=== PATIENT | female | born 1955 | race Caucasian/White ===

== ENCOUNTER → 2020-07-04 11:45 | Outpatient (CLI) | payer OTHER, SELFPAY ==
--- NOTE | 2020-07-04 11:52 | RAD_ITS ---
PROCEDURE: LUMBAR MYELOGRAM DATE OF EXAMINATION: 07/04/2020. INDICATION: Female, 64 years old. Low back pain. PHYSICIAN: Feliciano Tobar M.D. CONSENT: The patient''s history and physical findings were reviewed. The lumbar myelogram procedure was discussed with the patient prior to signing a consent. SEDATION: Local anesthesia with 3 mL of 1% lidocaine was used. FLUOROSCOPY TIME (if supplied): (1:12) minutes/seconds Injection Information: 15 cc of ISOVUE-M 200. Number of images obtained: 4 TECHNIQUE: Digital fluoroscopy was used to identify a safe approach for the lumbar myelogram. The back was prepped and draped in usual fashion. Local anesthesia was utilized. Under fluoroscopic guidance a 22-gauge spinal needle was inserted into the spinal canal at the L4-5 level. 15 mL of Isovue 200 M was injected into the spinal canal. There is good opacification of the spinal fluid. The nerve root sheaths are asymmetrically identified. 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 RAD/Lumbar Myelogram IMPRESSION: Multiple anterior extradural defects as described. A CT scan will follow. The patient tolerated the procedure well. Electronically Signed: Feliciano Tobar MD at 13:21 EST , Service support ,
[2020-07-04 12:08] VITALS: BP 167/70; PULSE 74; RESP 16; TEMP 36.6; O2SAT 98; BMI 28.3
--- NOTE | 2020-07-04 12:49 | CT_ITS ---
STUDY: CT LUMBAR SPINE WITH INTRATHECAL CONTRAST (LUMBAR CT MYELOGRAM) REASON FOR EXAM: Female, 64 years old. LUMBAR MYELOGRAM RADIATION DOSAGE (If Supplied By Facility): CTDIvol = ( 14.59 ) mGy, DLP = ( 387.47 ) mGycm TECHNIQUE: Transaxial images were obtained from the L1 vertebra through the S1 vertebrae, following intrathecal administration of 15 ml of ISOVUE-M 200 contrast material, performed by Dr. Ekateirna WALTON. Please refer to this physicians technical notes for procedural details. Coronal and sagittal reconstructions were obtained. Individualized dose optimization techniques were used for this CT. COMPARISON: Comparison is made with prior mammogram done earlier in the day. FINDINGS: Normal lumbar lordosis. There is no substantial scoliosis. Normal vertebrae of the lumbar spine. There is dependent layering of contrast material in the distal thecal sac. The conus medullaris terminates in a normal position at the L1-L2. There is no demonstrated cauda equina nerve root abnormality or intraspinal mass. L1-2: Moderate degree of disc space narrowing and disc degeneration. Mild degree of diffuse posterior disc bulge causing mild deformity of the anterior thecal sac. Minimal stenosis. L2-3: Moderate degree of disc space narrowing. Anterior spondylosis. Moderate degree of diffuse posterior disc bulge as well as minimal retrolisthesis of L2 on L3 causing mild degree of spinal stenosis slightly worse on the right side. L3-4: Marked degree of disc space narrowing and disc degeneration. Spondylosis. Moderate degree of bilateral neural foraminal stenosis secondary to diffuse posterior disc bulge as well as facet joint proliferation. L4-5: Marked degree of disc space narrowing and disc degeneration. There is evidence of a left lateral disc herniation causing deformity of the thecal sac and compromise of the exiting nerve root. L5-S1: Normal endplates. Normal disc height and morphology. Normal bilateral facet joints. Normal central canal and bilateral lateral recesses. Normal bilateral intervertebral neural foramina. Normal visualized sacroiliac joints. Normal visualized paraspinous soft tissue structures. CT/Spine Lumbar WITH Contrast IMPRESSION: Multilevel disc space narrowing and disc bulging as described. Left lateral disc herniation causing deformity of the thecal sac and compromise of the exiting nerve root at the L4-L5 level. Electronically Signed: Feliciano Tobar MD at 14:51 EST , Service support ,
[2020-07-04 14:06] VITALS: BP 166/76; PULSE 81; RESP 14; O2SAT 97
== END ==
PROVIDERS: PCP Family Medicine; Referring Provider Specialist; Visit Provider Specialist
DX: M51.36 Other intervertebral disc degeneration, lumbar region (principal)
CPT/HCPCS: 62304; 72132; Q9967

== ENCOUNTER 2020-08-23 16:44 | Outpatient (RCR) | payer OTHER, SELFPAY ==
[2020-07-04 12:08] VITALS: BMI 28.3
[2020-08-23] MEDS: COVID-19 VACC, MRNA(PFIZER)/PF 30 MCG/0.3 ML SYRINGE IM (18:05)
[2020-09-13] MEDS: COVID-19 VACC, MRNA(PFIZER)/PF 30 MCG/0.3 ML SYRINGE IM (17:51)
== END 2020-11-22 23:59 ==
LOC: IMMUN 16:44
PROVIDERS: PCP Family Medicine; Visit Provider Family Medicine
DX: Z23 Encounter for immunization (principal)
CPT/HCPCS: 0001A; 0002A; 91300

== ENCOUNTER 2021-02-23 16:20 | Emergency (ER) | payer OTHER, SELFPAY ==
[2021-02-23 16:21] VITALS: BP 128/96; PULSE 84; RESP 16; TEMP 36.1; O2SAT 97; BMI 24.5
--- NOTE | 2021-02-23 17:02 | US_ITS ---
We are attempting to reach an attending provider to discuss findings. An addendum with communication details will be sent when the communication is complete. The INDICATION: LT POSTERIOR CALF PAIN EXAMINATION: Ultrasound US Venous Duplex LE Unilat / Limited TECHNIQUE: Lee scale, pulse wave, and color flow Doppler imaging was performed of the lower extremity venous system. The left greater saphenous, common femoral, femoral, and popliteal veins were interrogated. COMPARISON: None. FINDINGS: Common femoral and femoral vein show normal grayscale appearance and compressibility. Noncompressible thrombus seen in the popliteus vein with absent color flow. Partial noncompressibility proximal posterior tibial vein and peroneal vein. There is also noncompressible thrombus visible in the more distal leg labeled by the manager acute as LT GASTROCS. Contralateral right common femoral vein shows normal grayscale appearance, color flow and venous waveform. US/Venous Duplex Imag/Limited/Uni IMPRESSION: Deep venous thrombosis popliteus vein with at least partial involvement posterior tibial and peroneal veins. Electronically Signed: Cabrera Garcia DO at 18:15 EDT Tel , Service support ,
--- NOTE | 2021-02-23 17:53 | ED.VIS.LOWEX ---
HPI History of Present Illness Chief Complaint: Lower Extremity Injury Narrative Narrative: Patient presenting for evaluation secondary to concern for DVT. Patient does have past history of DVT when she was in her 20s secondary to a Patient denies any provoking factors associated with this. hysterectomy. She is not currently anticoagulated. Patient states over the course about the last 4 days she has had pain in her left calf going up behind her knee. There has been no chest pain or shortness of breath. No thigh pain. Pain is mild worse with palpation and movement. No injuries. No lifting twisting pushing pulling or increased activity that would explain this. Review of systems otherwise negative. PFSH PFSH Home Medications escitalopram oxalate 20 mg PO DAILY 02/23/21 [History Last Taken Unknown] losartan 75 mg PO DAILY 02/23/21 [History Last Taken Unknown] metformin 1,000 mg PO DAILY 02/23/21 [History Last Taken Unknown] rivaroxaban [Xarelto DVT-PE Treat 30d Start] See Rx Instructions .ROUTE .COMPLEX #51 tab 02/23/21 [Rx Last Taken Unknown] zolpidem 5 mg PO QHS 02/23/21 [History Last Taken Unknown] Allergy/AdvReac Type Severity Reaction Status Date / Time No Known Allergies Allergy Verified 02/23/21 16:21 Social History Smoking Status: Never smoker ROS ROS ED Constitutional Constitutional ED: Denies chills or fever(s) ENT ENT ED: Denies rhinorrhea Cardiovascular Cardiovascular: Denies chest pain Respiratory/Chest Respiratory/Chest: Denies cough or dyspnea Gastrointestinal Gastrointestinal: Denies abdominal pain, diarrhea, nausea or vomiting Genitourinary Genitourinary ED: Denies dysuria or hematuria Musculoskeletal Musculoskeletal: Reports other Details: Left leg pain Integumentary Denies rash Neurologic Neurologic: Denies paresthesias or weakness Psychiatric Psychiatric: Denies depression Endocrine Endocrinology: Denies fatigue Allergic/Immunologic Allergic/Immunologic ED: Denies urticaria EXAM Physical Exam Const Vital Signs: 02/23/21 16:21 Temperature 96.9 F L Temperature Source Temporal Pulse Rate 84 Respiratory Rate 16 Blood Pressure 128/96 H Blood Pressure Mean 106 Pulse Ox 97 Oxygen Delivery Method Room Air Positive well nourished and well developed General Appearance ED: well developed and NAD HEENT Reports moist mucous membranes Negative for trauma or tenderness Eyes EOMs intact bilaterally Neck no lymphadenopathy, supple and no JVD Chest Wall inspection of chest normal Resp normal respiratory effort and clear to auscultation bilaterally Cardio regular rate, regular rhythm, no murmurs and peripheral pulses 2+ throughout GI normal to inspection, nondistended, normoactive bowel sounds, non-tender and no masses Palpation: soft Back/Spine normal to inspection Extremity Extremity Narrative: Left leg shows calf tenderness as well as tenderness in the popliteal fossa. There is no palpable cord. Normal distal pulses and sensation. Compartments are soft. Thigh is supple and nontender. General Extremety ED: Negative for tenderness Neuro oriented x3 and no sensory deficits noted Sensorium / Orientation: alert Motor Exam: strength 5/5 throughout Psych mental status grossly normal Skin no rashes or lesions noted MDM MDM MDM Narrative Medical decision making narrative: Patient presented secondary to leg pain. Duplex ultrasound does demonstrate evidence of a DVT going up through the popliteal trunk. Patient will be placed on anticoagulation. Patient will follow up with primary care. Patient is not complaining of chest pain shortness of breath is not hypoxic or tachycardic do not believe that work-up for PE is indicated. Discharge Plan Triage Chief Complaint: Lower Extremity Injury ED Provider: Cabrera Sullivan Dx/Rx/DC Orders Clinical Impression: DVT (deep venous thrombosis) Instructions: ED Deep Vein Thrombosis (DVT) Prescriptions: New Xarelto DVT-PE Treat 30d Start 15 mg (42)- 20 mg (9) tablets,dose pack See Rx Instructions .ROUTE .COMPLEX Qty: 51 RF: 0 No Action losartan 50 mg tablet 75 mg PO DAILY RF: 0 metformin 1,000 mg tablet 1,000 mg PO DAILY RF: 0 zolpidem 5 mg tablet 5 mg PO QHS RF: 0 escitalopram oxalate 20 mg tablet 20 mg PO DAILY RF: 0 Primary Care Provider: Lenard Sauceda Referrals: Lenard Sauceda MD [Primary Care Provider] - 3-5 Days Disposition Disposition: Home, Self Care
== END 2021-02-23 18:05 | disposition home or self-care (01) ==
PROVIDERS: Emergency Provider Emergency Medicine; PCP Family Medicine
DX: I82.439 Acute embolism and thrombosis of unspecified popliteal vein (principal); Z79.01 Long term (current) use of anticoagulants; Z79.84 Long term (current) use of oral hypoglycemic drugs; Z79.899 Other long term (current) drug therapy; Z86.718 Personal history of other venous thrombosis and embolism
CPT/HCPCS: 93971; 99282

== ENCOUNTER 2023-06-05 09:10 | Emergency (ER) | payer MEDICARE, SELFPAY ==
[2023-06-05 09:12] VITALS: BP 155/72; PULSE 81; RESP 14; TEMP 35.7; O2SAT 98; BMI 30.1
--- NOTE | 2023-06-05 09:45 | VDLE_ITS ---
Reason For Study: Right leg pain RIGHT LEFT GSV is normal. CFV is compressible, spontaneous, phasic, CFV is compressible, spontaneous, phasic, competent, and demonstrates normal competent and demonstrates normal augmentation. augmentation. FV prox is compressible with venous flow noted. Acute deep vein thrombosis is noted in the right FV mid-distal, PopV, T/P Trunk, GastrocV, SoleusV, PTV and PeroV. It is NONCOMPRESSIBLE and dilated. Procedure This is a venous duplex using B-mode, color flow and spectral Doppler. Exam performed portable in ED. A preliminary report was called and/or faxed to Dr. phillips. VL/Venous Duplex US, Unilateral Interpretation Summary Acute deep vein thrombosis is noted in the right femoral vein, popliteal vein, tibioperoneal trunk vein, gastrocnemius vein, soleus vein, posterior tibial vein, peroneal vein. Ordering Physician: Reji Phillips Referring Physician: Lenard Sauceda Performed By: Tori Torre RVT
--- NOTE | 2023-06-05 09:45 | ED.VIS.LOWEX ---
HPI History of Present Illness Chief Complaint: Lower Extremity Injury Informant: patient and spouse/S.O. Narrative Narrative: 67-year-old female presenting to the emergency room with the chief complaint of right leg swelling and pain. Patient states that she is had prior DVTs but does not recall what she was previously on. No history of cancer or recent surgery or travel. Patient states this has been there for approximately 2 days. She notes discomfort in the right thigh and swelling from the calf inferiorly. Patient has had prior peripheral artery stenting. The patient notes a couple weeks ago she had some back injections and she has not been as active as she normally is. [facility] Medical History Diabetes DVT (deep venous thrombosis) Hypertension Spinal cord stimulator status Home Medications escitalopram oxalate 20 mg tablet 20 mg PO DAILY 02/23/21 [History Last Taken Unknown] losartan 50 mg tablet 75 mg PO DAILY 02/23/21 [History Last Taken Unknown] metformin 1,000 mg tablet 1,000 mg PO DAILY 02/23/21 [History Last Taken Unknown] zolpidem 5 mg tablet 5 mg PO QHS 02/23/21 [History Last Taken Unknown] hydrocodone-acetaminophen 5-325mg 5mg-325mg 1 tab PO Q6H PRN PRN Pain 3 days #12 TABLETS 06/05/23 [Rx Last Taken Unknown] rivaroxaban 15 mg (42)-20 mg (9) tablets in a starter pack (Xarelto DVT-PE Treatment 30-Day Starter) See Rx Instructions PO .COMPLEX #51 tabs 06/05/23 [Rx Last Taken Unknown] Allergy/AdvReac Type Severity Reaction Status Date / Time No Known Allergies Allergy Verified 06/05/23 09:11 Surgical History H/O endarterectomy History of shoulder surgery Social History Smoking Status: Never smoker ROS ROS ED Constitutional Constitutional ED: Denies chills or weight loss Eyes Eyes: Denies change in vision or diplopia ENT ENT ED: Denies ear pain, rhinorrhea or sore throat Cardiovascular Cardiovascular: Denies chest pain, orthopnea, palpitations or racing heartbeat Respiratory/Chest Respiratory/Chest: Denies cough, dyspnea or orthopnea Gastrointestinal Gastrointestinal: Denies abdominal pain, diarrhea, nausea or vomiting Genitourinary Genitourinary ED: Denies dysuria, hematuria or urinary frequency Musculoskeletal Musculoskeletal: Reports other Details: Right leg swelling and pain ; Denies arthralgias or myalgias Integumentary Denies abscess or rash Neurologic Neurologic: Denies headache(s) or weakness Psychiatric Psychiatric: Denies anxiety, depression, suicidal ideation or suicidal thoughts Endocrine Endocrinology: Denies polydipsia, polyphagia or polyuria Allergic/Immunologic Allergic/Immunologic ED: Denies mouth swelling, tongue swelling or urticaria EXAM Physical Exam Const Vital Signs: 06/05/23 09:12 Temperature 96.3 F L Temperature Source Temporal Pulse Rate 81 Respiratory Rate 14 Blood Pressure 155/72 H Blood Pressure Mean 99 Pulse Ox 98 Oxygen Delivery Method Room Air Positive well nourished and well developed General Appearance ED: well developed HEENT Reports normocephalic, head/scalp atraumatic and moist mucous membranes Eyes PERRL and EOMs intact bilaterally Neck no lymphadenopathy, supple and no JVD Resp normal respiratory effort and clear to auscultation bilaterally Cardio regular rate, regular rhythm and no murmurs GI normal to inspection, nondistended, normoactive bowel sounds and non-tender Palpation: soft Back/Spine no CVA tenderness and normal ROM Extremity normal to inspection Extremity Narrative: The right calf is swollen and tender. Swelling extends down to just inferior to the malleoli. No skin erythema. There is some increased warmth. Good dorsalis pedis pulse General Extremety ED: Negative for edema General Extremity: Negative for edema Neuro oriented x3 and CN's II-XII intact bilaterally Sensorium / Orientation: alert Motor Exam: strength 5/5 throughout Psych mental status grossly normal Mood & Affect: Negative for depressed or tearful Skin no rashes or lesions noted and no wounds MDM MDM MDM Narrative Medical decision making narrative: Duplex ultrasound was obtained which demonstrates an acute DVT starting in the mid femoral vein. She has previously been on Xarelto and she states that it was well-tolerated. We will go ahead and begin this again. I will attempt to reach her primary care doctor to inform them. I did speak with her pain management doctor because the patient is requesting some pain medication. I did review her [facility] report and speak with Dr. Borrero. I think it is reasonable to write her a small amount of [place] as she takes a half a tablet twice a day chronically Discharge Plan Triage Chief Complaint: Lower Extremity Injury ED Provider: Reji Phillips Dx/Rx/DC Orders Clinical Impression: Acute deep vein thrombosis (DVT) of right lower extremity Instructions: DVT Tx Prescriptions: New Xarelto DVT-PE Treat 30d Start 15 mg (42)- 20 mg (9) tablets,dose pack See Rx Instructions .ROUTE .COMPLEX Qty: 51 0RF Rx Instructions: take one-15 mg tablet twice daily for 21 days, then one-20 mg tablet once daily; must take with meal/food hydrocodone-acetaminophen [hydrocodone-acetaminophen] 5-325 mg tablet 1 tab PO Q6H PRN PRN (Reason: Pain) 3 Days Qty: 12 0RF Discontinued Xarelto DVT-PE Treat 30d Start 15 mg (42)- 20 mg (9) tablets,dose pack See Rx Instructions .ROUTE .COMPLEX Qty: 51 0RF Rx Instructions: Take one-15 mg tablet twice daily for 21 days, then one-20 mg tablet once daily; must take with meal/food No Action losartan 50 mg tablet 75 mg PO DAILY Patient Comments: once a day metformin 1,000 mg tablet 1,000 mg PO DAILY Patient Comments: once a day zolpidem 5 mg tablet 5 mg PO QHS Patient Comments: TAKE 1 TABLET BY MOUTH AT BEDTIME escitalopram oxalate 20 mg tablet 20 mg PO DAILY Primary Care Provider: Lenard Sauceda Referrals: Lenard Sauceda MD [Primary Care Provider] - As soon as possible Disposition Disposition: Home, Self Care
== END 2023-06-05 11:37 | disposition home or self-care (01) ==
PROVIDERS: Emergency Provider Emergency Medicine; PCP Family Medicine; Visit Provider Emergency Medicine
DX: I82.419 Acute embolism and thrombosis of unspecified femoral vein (principal); E11.9 Type 2 diabetes mellitus without complications; I10 Essential (primary) hypertension; Z86.718 Personal history of other venous thrombosis and embolism; Z79.899 Other long term (current) drug therapy
CPT/HCPCS: 93971; 99282

== ENCOUNTER → 2023-10-08 | Outpatient (CLI) | payer MEDICARE, SELFPAY ==
[2023-10-08 11:09] LABS: Amphetamine Urine VISTA NEGATIVE (<1000 ng/mL); Barbiturate Urine VISTA NEGATIVE (< 200 ng/mL); Benzodiazepine Urine VISTA NEGATIVE (< 200 ng/mL); Cocaine Urine VISTA NEGATIVE (< 300 ng/mL); Ecstacy Urine VISTA NEGATIVE (< 500 ng/mL); Methadone Urine VISTA NEGATIVE (< 300 ng/mL); PCP Urine VISTA NEGATIVE (< 25 ng/mL); THC Urine VISTA NEGATIVE (< 50 ng/mL); Vista UDS pH Range 5
== END | disposition home or self-care (01) ==
PROVIDERS: PCP Family Medicine; Referring Provider Anesthesiology Pain Medicine; Visit Provider Anesthesiology Pain Medicine
DX: F11.20 Opioid dependence, uncomplicated (principal)
CPT/HCPCS: 80307

== ENCOUNTER 2024-01-18 20:07 | Emergency (ER) | payer MEDICARE, SELFPAY ==
[2024-01-18 20:08] VITALS: BP 139/64; PULSE 94; RESP 17; TEMP 36.7; O2SAT 94
[2024-01-18 20:59] LABS: Basophil# 0.06 X10^3/uL; Basophil% 0.4 % (0-1); Eosinophils% 1.4 % (0-5); Hematocrit 34.3 % (37-47); Hemoglobin 10.8 g/dL (12.0-15.0); Lymphocyte % 20.2 % (19-41); Mean Corp Hgb Conc 31.5 g/dL (32-36); Mean Corpuscular Hgb 26.6 pg (27.0-32.0); Mean Corpuscular Volume 84.5 fL (81-99); Mean Platelet Vol. 9.7 fl (6.2-12.0); Monocyte# 1.18 X10^3/uL; Monocyte% 8.2 % (0-10); NRBC Flagged by Analyzer 0 % (0-5); Neutrophil # 9.96 X10^3/uL (2.7-7.7); Neutrophil % 69.2 % (47-70); Platelet Count 357 K/mm3 (150-450); RBC Distribution Width CV 15.7 % (11.6-14.6); RBC Distribution Width SD 48.3 fl (35.1-43.9); Red Blood Count 4.06 M/mm3 (4.2-5.4); White Blood Count 14.4 K/mm3 (4.4-11.0)
[2024-01-18 21:08] VITALS: BP 119/59; PULSE 94; RESP 12; O2SAT 96
--- NOTE | 2024-01-18 21:10 | RAD_ITS ---
EXAM: XR CHEST, 2 VIEWS CLINICAL INDICATION: chest pain TECHNIQUE: Frontal and lateral views of the chest. COMPARISON: No relevant prior studies available. FINDINGS: LUNGS AND PLEURAL SPACES: Unremarkable. No consolidation or edema. No pneumothorax. No effusion. HEART: Unremarkable. Cardiac silhouette not enlarged. MEDIASTINUM: Central airways and mediastinal contour are unremarkable. BONES/JOINTS: Degenerative changes of the spine. No acute fracture. SOFT TISSUES: Unremarkable. VASCULATURE: Atherosclerotic calcifications of the nonenlarged thoracic aortic arch. Atherosclerotic calcifications involving the left axillary artery. RAD/Chest PA and Lateral IMPRESSION: No acute disease. Electronically Signed: Ritesh Strong MD at 21:33 EDT ,
--- NOTE | 2024-01-18 21:14 | EKG12_ITS ---
Test Reason : CP Blood Pressure : / mmHG Vent. Rate : 096 BPM Atrial Rate : 096 BPM P-R Int : 148 ms QRS Dur : 070 ms QT Int : 348 ms P-R-T Axes : 066 -41 050 degrees QTc Int : 439 ms Normal sinus rhythm Left axis deviation Low voltage QRS Abnormal ECG Confirmed by Cabrera Caro ([id number]), school photograph editor TEDDY PEREIRA ([id number]) on 01/21/2024 1:42:10 PM Referred By: Confirmed By:Cabrera Caro
[2024-01-18 21:16] LABS: Anion Gap 6 (5-15); BUN 14 mg/dL (7-18); Calcium,Total 8.9 mg/dL (8.5-10.1); Chloride 109 mmol/L (98-107); Creatinine, Serum 1.08 mg/dL (0.55-1.02); EST Glomerular Filtration Rate 53 mL/min (>60); Est Glom Filt Rate - Afr Amer 65 mL/min (>60); Glucose 296 mg/dL (74-106); Magnesium 1.7 mg/dL (1.6-2.6); Potassium 3.7 mmol/L (3.5-5.1); Sodium Level 140 mmol/L (136-145); Troponin-I HS 15 pg/mL (3.0-54.0)
[2024-01-18 21:59] LABS: D-Dimer Quantitative (DVT/PE) 1.05 FEU/ug/m (0.27-0.49)
[2024-01-18 22:00] VITALS: BP 147/63; PULSE 93; RESP 21; O2SAT 90
--- NOTE | 2024-01-18 22:03 | CT_ITS ---
ACR Level 3 findings have been noted. An addendum which confirms receipt of the report will follow. EXAM: CT ANGIOGRAPHY CHEST WITHOUT AND WITH INTRAVENOUS CONTRAST CLINICAL INDICATION: chest pain with elevated d-dimer TECHNIQUE: Helically acquired angiography images were obtained of the chest without and with intravenous contrast. CTDIvol = ( 13.25 ) mGy, DLP = ( 492.48 ) mGycm This CT exam was performed using one or more of the following dose reduction techniques: automated exposure control, adjustment of the mA and/or kV according to patient size, and/or use of iterative reconstruction technique. MIP reconstructed images were created and reviewed. CONTRAST: IV 100mL Isovue-370 COMPARISON: No relevant prior studies available. FINDINGS: PULMONARY ARTERIES: Unremarkable. Normal in caliber. No evidence of pulmonary embolism. AORTA: Unremarkable. Normal in caliber. No evidence of dissection. GREAT VESSELS OF AORTIC ARCH: Unremarkable. Normal in caliber. No evidence of dissection. LUNGS AND PLEURAL SPACES: Mild to moderate centrilobular emphysema which is worse at the upper lungs. 1.6 x 1 cm subpleural nodule at the medial aspect of the right lower lobe. No pneumothorax. No consolidation. HEART: [id number] multivessel calcific coronary atherosclerosis. Heart size is normal. Small volume pericardial fluid. MEDIASTINUM: Unremarkable. No mediastinal or hilar adenopathy. Esophagus is unremarkable. No hiatal hernia. THYROID: Unremarkable. No thyroid lesions. BONES/JOINTS: Unremarkable. No suspicious lytic or blastic abnormality. CT/CTA Chest W/WO Contrast IMPRESSION: 1. No PE. 2. Small pericardial effusion. 3. 1.6 x 1 cm subpleural nodule at the medial aspect of the right lower lobe. This is concerning for a neoplastic process. Recommend PET/CT for further investigation. AID[employer] was utilized to assist in identifying pertinent positive findings. Electronically Signed: Ritesh Strong MD at 0:32 EDT ,
[2024-01-18 23:00] VITALS: BP 135/64; PULSE 96; RESP 18; O2SAT 94
[2024-01-18 23:37] LABS: Troponin-I HS 19 pg/mL (3.0-54.0)
[2024-01-18 23:59] VITALS: PULSE 96; RESP 15; O2SAT 94
[2024-01-19] VITALS: PULSE 94; RESP 14; O2SAT 93
--- NOTE | 2024-01-19 00:36 | EDS_ITS ---
HPI History of Present Illness Chief Complaint: Chest Pain Informant: patient and spouse/S.O. Narrative Narrative: Patient is a 68-year-old female with past medical history of COPD previous DVT currently on Eliquis as well as hypertension and bxk-korirda-ijqxopbbn diabetes. Patient states she developed some sharp left and midsternal chest pain this evening while sitting at rest. She denies any nausea vomiting or diaphoresis associated with this. She states there was slight increase in shortness of breath. She reports her has history of cardiovascular disease and therefore she took 2 of his nitroglycerin pills. She states after doing so she did have mild improvement of symptoms. She is concerned that her chest discomfort could be due to cardiovascular disease and secondary to this comes in for evaluation [facility] Medical History Diabetes DVT (deep venous thrombosis) Hypertension Spinal cord stimulator status Home Medications ?Medication ?Instructions ?Recorded ?Last Taken ?Type albuterol sulfate 90 mcg/actuation 2 puff inhalation Q4 PRN 10/24/23 Unknown History aerosol inhaler amlodipine 5 mg tablet 5 mg PO QDAY 10/24/23 Unknown History buprenorphine 5 mcg/hour weekly 1 patch topical QWEEK 10/24/23 Unknown History transdermal patch fluticasone fur. 200 mcg-umeclid 1 ea inhalation QDAY 10/24/23 Unknown History 62.5 mcg-vilant 25 mcg inhalat.powder (Trelegy Ellipta) glimepiride 4 mg tablet 4 mg PO BID 10/24/23 Unknown History ekfxzsltyhko-likhakaa-zwszdh tablet 1 tab PO DAILY 10/24/23 Unknown History omeprazole 20 mg capsule,delayed 20 mg PO BID 10/24/23 Unknown History release rivaroxaban 20 mg tablet (Xarelto) 20 mg PO QDAY 10/24/23 Unknown History trazodone 50 mg tablet 50 mg PO QHS 10/24/23 Unknown History Allergy/AdvReac Type Severity Reaction Status Date / Time No Known Allergies Allergy Verified 10/24/23 09:28 Surgical History H/O endarterectomy History of shoulder surgery Social History (Updated 10/24/23 @ 09:31 by Yamileth Khan) household members: spouse Smoking Status: Current every day smoker tobacco type: cigarettes alcohol intake: never ROS ROS ED Constitutional Constitutional ED: Denies chills or fever(s) Eyes Eyes: Denies blurry vision or change in vision ENT ENT ED: Denies sore throat Cardiovascular Cardiovascular: Reports chest pain; Denies palpitations or racing heartbeat Respiratory/Chest Respiratory/Chest: Reports dyspnea; Denies cough Gastrointestinal Gastrointestinal: Denies abdominal pain, diarrhea, nausea or vomiting Genitourinary Genitourinary ED: Denies dysuria Musculoskeletal Musculoskeletal: Denies myalgias Integumentary Denies rash Neurologic Neurologic: Denies headache(s) Hematologic/Lymphatic Hematologic/Lymphatic: Reports easy bleeding and easy bruising EXAM Physical Exam Const Vital Signs: 01/18/24 20:08 01/18/24 21:08 01/18/24 22:00 Temperature 98.1 F Temperature Source Oral Pulse Rate 94 94 93 Respiratory Rate 17 12 21 H Blood Pressure 139/64 H 119/59 L 147/63 H Blood Pressure Mean 89 79 91 Pulse Ox 94 96 90 Oxygen Delivery Method Room Air Room Air Room Air 01/18/24 23:00 01/18/24 23:59 01/19/24 00:00 Temperature Temperature Source Pulse Rate 96 96 94 Respiratory Rate 18 15 14 Blood Pressure 135/64 H Blood Pressure Mean 87 Pulse Ox 94 94 93 Oxygen Delivery Method Room Air 01/19/24 00:41 Temperature 97.1 F L Temperature Source Pulse Rate 93 Respiratory Rate 13 Blood Pressure 142/70 H Blood Pressure Mean 94 Pulse Ox 91 Oxygen Delivery Method Positive well nourished and well developed General Appearance ED: well developed; Negative for pallor HEENT Reports moist mucous membranes HEENT Narrative: No tongue or lip swelling no oral lesions no airway edema or compromise Eyes PERRL and EOMs intact bilaterally General Eye ED: Negative for pale conjunctiva or scleral icterus Neck supple and no JVD Chest Wall Chest Narrative: No bony deformity or crepitance noted Resp normal respiratory effort Resp Narrative: Breath sounds are diminished throughout with diffuse expiratory wheeze consistent with history of COPD but no nasal flaring retractions tachypnea or accessory muscle use Cardio regular rate and regular rhythm Rate: other Other Details: Heart is regular rate and rhythm Radial and carotid pulses are equal and symmetric GI normal to inspection, nondistended, normoactive bowel sounds, non-tender, non- distended and no masses GI Narrative: No voluntary guarding or rigidity or pulsatile mass Auscultation: normoactive bowel sounds Palpation: soft Back/Spine no CVA tenderness Extremity normal to inspection Extremity Narrative: No asymmetric edema no pitting edema negative Homans' sign bilaterally Neuro oriented x3, CN's II-XII intact bilaterally and no sensory deficits noted Sensorium / Orientation: alert Motor Exam: strength 5/5 throughout Psych mental status grossly normal Skin no rashes or lesions noted General Skin Exam: Negative for jaundice or pallor MDM MDM MDM Narrative Medical decision making narrative: Patient arrived to the ER hypertensive but otherwise with stable vitals. She did report improvement of her chest discomfort after taking sublingual nitro. History and exam is not 100% consistent with acute coronary syndrome but with concern for this versus cardiac dysrhythmia versus pulmonary embolus versus dissection versus pneumonia versus pericardial effusion I did elect to check basic laboratory studies and added a D-dimer. Patient's troponin was 15 and then 19 which is within normal range and not clinically significant elevation this coupled with her EKG goes against acute coronary syndrome. There is no cardiac dysrhythmia noted while patient was on the monitor. D-dimer was elevated at 1.05 and therefore a concern for pulmonary embolus versus dissection as a cause of the elevation a CTA was obtained. CT revealed a small pericardial effusion but otherwise no acute finding. There was note of a small lung nodule. The patient does have risk for lung cancer based on her history of COPD and smoking. However at this time she does not have signs of acute coronary syndrome or cardiac arrhythmia there is no PE or dissection she is not requiring supplemental oxygen nor she in any respiratory distress and therefore she can be discharged home and follow-up on an outpatient basis History & Record Review Discussion w/independent historian: Patient and Significant other Lab Data Attestation: I reviewed the patient's lab results. Labs: Laboratory Results - last 24 hr 01/18/24 01/18/24 20:23 23:13 WBC 14.4 H RBC 4.06 L Hgb 10.8 L Hct 34.3 L MCV 84.5 MCH 26.6 L MCHC 31.5 L RDW Std Deviation 48.3 H RDW Coeff of Ron 15.7 H Plt Count 357 MPV 9.7 Immature Gran % (Auto) 0.600 Neut % (Auto) 69.2 Lymph % (Auto) 20.2 [place] % (Auto) 8.2 Eos % (Auto) 1.4 Baso % (Auto) 0.4 Absolute Neuts (auto) 10.0 H Absolute Lymphs (auto) 2.90 Nucleated RBC % 0 D-Dimer Quant (PE/DVT) 1.05 H* Sodium 140 Potassium 3.7 Chloride 109 H Carbon Dioxide 25.0 Anion Gap 6 BUN 14 Creatinine 1.08 H Est GFR (MDRD) Af Amer 65 Est GFR (MDRD) Non-Af 53 L BUN/Creatinine Ratio 13.0 Glucose 296 H Calcium 8.9 Magnesium 1.7 Troponin I High Sens 15 19 Radiography Diagnostic Testing: Clinical Impression(s) from Imaging Studies Chest X-Ray 01/18/24 21:10 IMPRESSION: No acute disease. Electronically Signed: Ritesh Strong MD at 21:33 EDT Reading Location ID and State: [id number] [email or web address] Tel , Service support , Chest CTA 01/18/24 22:03 IMPRESSION: 1. No PE. 2. Small pericardial effusion. 3. 1.6 x 1 cm subpleural nodule at the medial aspect of the right lower lobe. This is concerning for a neoplastic process. Recommend PET/CT for further investigation. [employer] was utilized to assist in identifying pertinent positive findings. Electronically Signed: Ritesh Strong MD at 0:32 EDT , ADDENDUM: 01/19/24 0055 IMPRESSION: 1. No PE. 2. Small pericardial effusion. 3. 1.6 x 1 cm subpleural nodule at the medial aspect of the right lower lobe. This is concerning for a neoplastic process. Recommend PET/CT for further investigation. [employer] was utilized to assist in identifying pertinent positive findings. N.B. : Elisabeth Israel RN, confirmed on 01/19/2024 00:48:11 (ET) that the healthcare facility has received the radiology report. Electronically Signed: Ritesh Strong MD at 0:32 EDT , Chest x-ray is interpreted by the emergency medicine physician reveals no acute infiltrate pneumothorax or pleural effusion Discharge Plan Triage Chief Complaint: Chest Pain ED Provider: Ritesh Torres Dx/Rx/DC Orders Clinical Impression: Nonspecific chest pain, Lung nodule, Current use of intermodal customer service anticoagulation, COPD (chronic obstructive pulmonary disease) Instructions: ED Chest Pain, Uncertain Cause, ED Pulmonary Nodule, Solitary Prescriptions: No Action buprenorphine 5 mcg/hour patch weekly 1 patch topical QWEEK omeprazole 20 mg capsule,delayed release(DR/EC) 20 mg PO BID glimepiride 4 mg tablet 4 mg PO BID amlodipine 5 mg tablet 5 mg PO QDAY Xarelto 20 mg tablet 20 mg PO QDAY albuterol sulfate 90 mcg/actuation HFA aerosol inhaler 2 puff inhalation Q4 PRN Trelegy Ellipta 200-62.5-25 mcg blister with device 1 ea inhalation QDAY trazodone 50 mg tablet 50 mg PO QHS uyituqiobhhh-yxldcbaa-vbbczb Tablet 1 tab PO DAILY Primary Care Provider: Lenard Sauceda Referrals: Lenard Sauceda MD [Primary Care Provider] - Activity Restrictions/Additional Instructions: Please follow-up with your family doctor for repeat evaluation and to discuss further testing to evaluate the lung nodule found on your CT scan. Please continue all of your home medications as directed by your family doctor and return to the ER should you have any further concerns Print Language: Cambodian Disposition Disposition: Home, Self Care Discharge Date/Time: 01/19/24 01:01
[2024-01-19 00:41] VITALS: BP 142/70; PULSE 93; RESP 13; TEMP 36.2; O2SAT 91
== END 2024-01-19 01:01 | disposition home or self-care (01) ==
PROVIDERS: Emergency Provider Emergency Medicine; PCP Family Medicine; Visit Provider Emergency Medicine
DX: R07.9 Chest pain, unspecified (principal); J44.9 Chronic obstructive pulmonary disease, unspecified; E11.9 Type 2 diabetes mellitus without complications; R06.02 Shortness of breath; I10 Essential (primary) hypertension; R91.1 Solitary pulmonary nodule; F17.210 Nicotine dependence, cigarettes, uncomplicated; Z79.84 Long term (current) use of oral hypoglycemic drugs; Z79.01 Long term (current) use of anticoagulants; Z79.899 Other long term (current) drug therapy; Z86.718 Personal history of other venous thrombosis and embolism
CPT/HCPCS: 71046; 71275; 80048; 83735; 84484; 85025; 85379; 93005; 99283; Q9967; A4216